=== PATIENT | male | born 1990 | race Caucasian/White ===

== ENCOUNTER 2025-04-27 18:29 | Inpatient (IN) | payer OTHER ==
[~2025-04-27] VITALS: Ht 172.7 cm; Wt 81.0 kg
[2025-04-27 19:39] LABS: COVID AG,FIA SOURCE NASAL SWAB
[2025-04-27 20:05] LABS: SARS-COV2 (COVID) ANTIGEN,FIA Negative (Negative)
[2025-04-27 20:43] LABS: APPEARANCE,URINE CLEAR (CLEAR); GLUCOSE, URINE (UA) NEGATIVE (NEGATIVE); LEUKOCYTE ESTERASE ,URINE NEGATIVE (NEGATIVE); NITRATE,URINE NEGATIVE (NEGATIVE); OCCULT BLOOD,URINE NEGATIVE (NEGATIVE); PH,URINE DRUG SCREEN 6.5 (5.0-8.0); SPECIFIC GRAVITIY, URINE 1.018 (1.003-1.030)
[2025-04-27 20:49] LABS: ALCOHOL, URINE DRUG SCREEN NEGATIVE (NEGATIVE); AMPHET/METH SCREEN,URINE NEGATIVE (NEGATIVE); BARBITURATE SCREEN, URINE NEGATIVE (NEGATIVE); CANNABINOID SCREEN,URINE NEGATIVE (NEGATIVE); COCAINE SCREEN,URINE NEGATIVE (NEGATIVE); METHADONE SCREEN, URINE NEGATIVE (NEGATIVE)
[2025-04-27] MEDS ORDERED: ONDANSETRON HCL 4 MG/2 ML VIAL IVP PRN (22:30)
[2025-04-27] MEDS ORDERED: ACETAMINOPHEN 325 MG TABLET PO PRN (22:30)
[2025-04-27] MEDS ORDERED: ZOLPIDEM TARTRATE 5 MG TABLET PO PRN (22:30)
[2025-04-27] MEDS ORDERED: BISACODYL 10 MG RECTAL RECTAL SUPPOSITORY PR PRN (22:30)
[2025-04-27] MEDS ORDERED: MAGNESIUM HYDROXIDE SUSPENSION 30 ML UDCUP PO PRN (22:30)
[2025-04-27 23:35] VITALS: BP 116/72; PULSE 60; RESP 18; TEMP 98.4; O2SAT 99
[2025-04-27] MEDS: HEPARIN SODIUM,PORCINE 5,000 UNITS/ML VIAL SQ SCH (23:45)
[2025-04-28 05:00] VITALS: BP 121/75; PULSE 55; RESP 18; TEMP 97.9; O2SAT 100
[2025-04-28] MEDS: PANTOPRAZOLE SODIUM 40 MG DR TABLET PO SCH (08:43)
[2025-04-28] MEDS: DOCUSATE SODIUM 100 MG CAPSULE PO SCH (08:43)
[2025-04-28 08:45] VITALS: BP 109/68; PULSE 50; RESP 18; TEMP 98; O2SAT 100
[2025-04-28 19:56] VITALS: BP 109/57; PULSE 53; RESP 18; O2SAT 98
[2025-04-28] MEDS: MIRTAZAPINE 30 MG TABLET PO SCH (20:36)
[2025-04-29 19:54] VITALS: BP 106/65; PULSE 50; RESP 18; TEMP 97.5; O2SAT 98
[2025-04-29 21:15] VITALS: PULSE 59
[2025-04-30 04:46] VITALS: BP 100/64; PULSE 65; RESP 19; TEMP 97.7; O2SAT 96
[2025-04-30 08:00] VITALS: BP 108/63; PULSE 40; RESP 18; TEMP 98; O2SAT 97
[2025-04-30 19:59] VITALS: BP 99/67; PULSE 62; RESP 18; TEMP 97.3; O2SAT 97
[2025-05-01 07:39] VITALS: BP 103/64; PULSE 48; RESP 18; TEMP 97.6; O2SAT 98
[2025-05-01 20:25] VITALS: BP 101/60; PULSE 59; RESP 19; TEMP 98; O2SAT 99
[2025-05-02] MEDS ORDERED: MIRT-149 PO (15:34)
[2025-05-02] MEDS ORDERED: DOCU100C33 PO (15:34)
[2025-05-02] MEDS ORDERED: HEPA50009 SQ (15:34)
[2025-05-02] MEDS ORDERED: PANT-31 PO (15:35)
[2025-05-02] MEDS ORDERED: RISP-31 PO (15:35)
== END 2025-05-02 19:45 | DRG 914 ==
LOC: EMS 18:37 → EDH 21:23 → 6S 23:25
PROVIDERS: ADMIT Internal Medicine; ATTEND Internal Medicine
DX: S61.52 Laceration with foreign body of wrist (principal); R45.851 Suicidal ideations; F33.2 Major depressive disorder, recurrent severe without psychotic features; Z20.822 Contact with and (suspected) exposure to COVID-19; F41.9 Anxiety disorder, unspecified; F14.10 Cocaine abuse, uncomplicated; F11.10 Opioid abuse, uncomplicated; F43.12 Post-traumatic stress disorder, chronic; X78.8XXA Intentional self-harm by other sharp object, initial encounter; Y93.89 Activity, other specified; Y92.89 Other specified places as the place of occurrence of the external cause; Y99.8 Other external cause status; Z79.899 Other long term (current) drug therapy; Z91.51 Personal history of suicidal behavior
CPT/HCPCS: 71045; 80307; 81003; 93005; 99285; J1644